=== PATIENT | female | born 1950 | race Hispanic/Latino ===

== ENCOUNTER 2025-02-01 13:49 | Emergency (ER) | payer MEDICARE ==
[~2025-02-01] VITALS: Ht 149.9 cm; Wt 54.4 kg
[2025-02-01 15:41] VITALS: PULSE 78; RESP 18; TEMP 98.2
[2025-02-01 16:38] LABS: BASOPHILS % 0.6 % (0.0-1.0); EOSINOPHILS % 0.6 % (0.0-6.0); LYMPHOCYTES % 15.7 % (18.0-39.1); MONOCYTES % 4.2 % (4.4-11.3); NEUTROPHILS % 78.5 % (38.7-80.0); RED CELL DISTRIBUTION WIDTH 12.9 % (11.7-14.4)
[2025-02-01] MEDS: ONDANSETRON HCL INJ 2MG/ML 2ML 2 MG/ML VIAL IV STA (16:45)
[2025-02-01 16:52] LABS: INR 0.94
[2025-02-01 16:59] LABS: EST GLOMERULAR FILTRATION RATE 45.0 ML/MIN (>=60)
[2025-02-01] MEDS: ACETAMINOPHEN 325 MG TAB PO ONE (17:48)
[2025-02-01] MEDS ORDERED: ONDANSETRON ODT4 MG PO ×2 (18:10→19:27)
[2025-02-01 19:55] VITALS: BP 179/75; PULSE 78; RESP 20; TEMP 97.9; O2SAT 98
== END 2025-02-01 20:11 | disposition home or self-care (01) ==
LOC: ER 16:11
DX: R51.9 Headache, unspecified (principal); I12.9 Hypertensive chronic kidney disease with stage 1 through stage 4 chronic kidney disease, or unspecified chronic kidney disease; E11.22 Type 2 diabetes mellitus with diabetic chronic kidney disease; N18.9 Chronic kidney disease, unspecified; R11.2 Nausea with vomiting, unspecified; R94.31 Abnormal electrocardiogram [ECG] [EKG]
CPT/HCPCS: 36415; 70450; 71045; 80053; 83735; 83880; 84484; 85025; 85610; 85730; 93005; 99284; J2405; J2470